=== PATIENT | male | born 1935 | race Caucasian/White ===

== ENCOUNTER 2023-07-05 11:35 | Emergency (ER) | payer MEDICARE, OTHER ==
[~2023-07-05] VITALS: Ht 175.3 cm; Wt 65.7 kg
[2023-07-05] VITALS (13 sets, daily range): BP systolic 100–132; BP diastolic 41–91
[~2023-07-05 11:35] MED LIST: AMLODIPINE5 MG PO; AUGMENTIN500TAB PO; AVELOX400 MG OR; AZOR1 TA1 PO; CHILD'S ASA81 MG PO; FLEXERIL5 M1 PO; LEVAQUIN500 MG PO; LIPITOR10 MG PO; LOSARTAN POTASS50 MG PO; MAG CITRATE PO; MIRALAX3350 N1 PO; NAPROSYN500 MG PO; NO HOME MEDS; PERCOCET 5/325M1 TAB PO; PLAVIX75 MG PO; TAMSULOSIN HCL0.4 MG PO
[2023-07-05] MEDS ORDERED: AMLODIPINE BESY10 MG PO (11:52)
[2023-07-05] MEDS ORDERED: COZAAR50 MG PO (11:52)
[2023-07-05] MEDS ORDERED: TRAMADOL HYDROC50 M1 PO (14:58)
[2023-07-05] MEDS ORDERED: PAXLOVID PO (14:58)
== END 2023-07-05 16:26 | disposition home or self-care (01) ==
LOC: ED 11:35
DX: U07.1 COVID-19 (principal); J10.1 Influenza due to other identified influenza virus with other respiratory manifestations; M25.552 Pain in left hip; G89.29 Other chronic pain; I10 Essential (primary) hypertension; E78.00 Pure hypercholesterolemia, unspecified; Z86.73 Personal history of transient ischemic attack (TIA), and cerebral infarction without residual deficits